=== PATIENT | male | born 1995 | race Caucasian/White ===

== ENCOUNTER 2021-05-20 10:50 | Emergency (ER) | payer OTHER ==
[~2021-05-20] VITALS: Ht 188 cm; Wt 79.4 kg
== END 2021-05-20 12:45 | disposition home or self-care (01) ==
LOC: ED 10:50
DX: U07.1 COVID-19 (principal)
CPT/HCPCS: 99284; U0003

== ENCOUNTER 2021-12-21 18:22 | Emergency (ER) | payer OTHER ==
[~2021-12-21] VITALS: Ht 188 cm; Wt 79.4 kg
--- OUTSIDE RECORDS SUMMARY | 2021-12-21 18:30 | XMS ---
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 Ed has no Care Guidelines for this patient. Jono VISIT COUNT (12 MO.) 2 WARREN Coley TOTAL 2 NOTE: Visits indicate total known visits. ED/[facility] VISIT TRACKING (12 MO.) 12/21/2021 18:24 [facility] [place] TYPE: Emergency COMPLAINT: - FALL, NECK INJURY 05/20/2021 10:52 [facility]ARR[facility] [place] TYPE: Emergency COMPLAINT: - HOT/COLD FLASHES, NAUSEA, FEVERISH DIAGNOSES: - COVID-19 - Headache, unspecified INPATIENT VISIT TRACKING (12 MO.) No inpatient visits to display in this time frame [email or web address]
[2021-12-21] MEDS ORDERED: HYDROCODON-ACE1 EA10 PO (21:27)
== END 2021-12-21 21:50 | disposition home or self-care (01) ==
LOC: ED 18:22
DX: S16.1XXA Strain of muscle, fascia and tendon at neck level, initial encounter (principal); S46.811A Strain of other muscles, fascia and tendons at shoulder and upper arm level, right arm, initial encounter; S30.810A Abrasion of lower back and pelvis, initial encounter; V18.9XXA Unspecified pedal cyclist injured in noncollision transport accident in traffic accident, initial encounter
CPT/HCPCS: 36415; 70450; 71250; 72125; 73080; 74177; 80048; 85025; 90471; 90714; 99284-25; Q9967